=== PATIENT | male | born 1965 | race Caucasian/White ===

== ENCOUNTER 2017-12-14 18:24 | Inpatient (IN) | payer MEDICARE, OTHER ==
[~2017-12-14] VITALS: Ht 165.1 cm; Wt 54.9 kg
[2017-12-14] MEDS ORDERED: VALP250S3 PO ×2 (18:44)
[2017-12-14] MEDS ORDERED: BRIM10DR6 EACHEYE (18:44)
[2017-12-14] MEDS ORDERED: QUET25TA PO (18:44)
[2017-12-14] MEDS ORDERED: TIMO5SOL11 OP (18:44)
[2017-12-14] MEDS ORDERED: MAGN400O6 PO (18:44)
[2017-12-14] MEDS ORDERED: HALO5AMP2 IJ (18:44)
[2017-12-14] MEDS ORDERED: DOCU-141 PO (18:44)
[2017-12-14] MEDS ORDERED: ACET-2154 PO (18:44)
[2017-12-14] MEDS ORDERED: BENZ1TAB7 PO (18:44)
[2017-12-14] MEDS ORDERED: THIA100T13 PO (18:44)
[2017-12-14] MEDS ORDERED: ASCO500C18 PO (18:44)
[2017-12-14] MEDS ORDERED: MULT9LIQ6 PO (18:44)
[2017-12-14 19:03] LABS: BASOPHILS # (AUTO) 0.1 K/uL (0.0-8.0); BASOPHILS % (AUTO) 0.7 % (0.0-2.0); EOSINOPHILS # (AUTO) 0.1 K/uL (0.0-0.7); EOSINOPHILS % (AUTO) 1.3 % (0.0-7.0); HEMATOCRIT 35.4 % (36.7-47.1); HEMOGLOBIN 11.9 g/dL (12.5-16.3); LYMPHOCYTES # (AUTO) 2.3 K/uL (20.0-40.0); LYMPHOCYTES % (AUTO) 31.6 % (20.5-51.5); MEAN CORPUSCULAR HEMOGLOBIN 28.6 uug (23.8-33.4); MEAN CORPUSCULAR HGB CONC 34 g/dL (32.5-36.3); MEAN CORPUSCULAR VOLUME 85.5 fL (73.0-96.2); MONOCYTES # (AUTO) 1.1 K/uL (2.0-10.0); MONOCYTES % (AUTO) 15.3 % (0.0-11.0); NEUTROPHILS # (AUTO) 3.7 K/uL (1.8-8.9); NEUTROPHILS % (AUTO) 51.1 % (38.5-71.5); PLATELET COUNT (AUTO) 392 K/uL (152-348); RED BLOOD CELL COUNT(AUTO) 4.15 MIL/uL (4.06-5.63); WHITE BLOOD COUNT (AUTO) 7.3 K/uL (3.6-10.2)
[2017-12-14 19:12] LABS: CREATININE 0.8 mg/dL (0.6-1.3)
--- NOTE | 2017-12-14 19:16 | NUR ---
PT IS IN ROOM #2A. DR DIAZ EVALUATED THE PT. REPORT GIVEN TO WEED CONTROLLER RN.
[2017-12-14 19:18] LABS: BILIRUBIN,TOTAL 0.2 mg/dL (0.2-1.0); TOTAL PROTEIN, SERUM 6.2 g/dL (6.4-8.2)
[2017-12-14 19:22] LABS: BAND % (MANUAL) 1 % (0-10); EOSINOPHILS % (MANUAL) 1 % (0-8); LYMPHOCYTES % (MANUAL) 29 % (20-40); MONOCYTES % (MANUAL) 16 % (2-10); NEUTROPHILS % (MANUAL) 53 % (42-75)
[2017-12-14 20:04] LABS: *BILIRUBIN,URIN NEGATIVE (NEGATIVE); *BLOOD, URINE 2+ (NEGATIVE); *COLOR,URINE YELLOW (YELLOW); *KETONES,URINE NEGATIVE (NEGATIVE); *PROTEIN,URINE NEGATIVE (NEGATIVE); *UROBILINOGEN,URINE 0.2 E.U./dl (NORMAL); LEUKOCYTE ESTERASE ,URINE 1+ (NEGATIVE); NITRITE, URINE NEGATIVE (NEGATIVE); UGLUCOSE NEGATIVE (NEGATIVE)
[2017-12-14 20:11] LABS: *CLARITY,URINE HAZY (CLEAR)
[2017-12-14 20:13] LABS: RBC,URINE 50-80 /HPF (0-3); SQUAMOUS EPITHELIAL CELL,UR FEW /HPF (NONE SEEN); WBC,URINE 20-50 /HPF (0-3)
--- NOTE | 2017-12-14 20:55 | NUR ---
ECHOCARDIOGRAPH BEING CONDUCTED AT BEDSIDE
[2017-12-14] MEDS ORDERED: HYDROCODONE/APAP 5-325MG TABLET PO ONE (20:58)
[2017-12-14] MEDS ORDERED: HYDROCODONE/APAP 5-325MG TABLET ONE (21:04)
[2017-12-14] MEDS ORDERED: MAGNESIUM HYDROXIDE 30 ML LIQUID UDC PO PRN (21:45)
[2017-12-14] MEDS ORDERED: ACETAMINOPHEN 325 MG TABLET PO SCH (21:45)
[2017-12-14] MEDS ORDERED: ONDANSETRON 4 MG/2 ML VIAL IV PRN (21:45)
[2017-12-14] MEDS ORDERED: Z GUARD REMEDY PASTE 57 GM TUBE TOP PRN (21:45)
[2017-12-14] MEDS ORDERED: LORAZEPAM 2 MG/1 ML VIAL IV ONE (21:47)
[2017-12-14] MEDS ORDERED: LORAZEPAM 2 MG/1 ML VIAL ONE (21:50)
--- NOTE | 2017-12-14 22:15 | NUR ---
REPORT GIVEN TO KATHERINE ELENA.
[2017-12-14] MEDS ORDERED: CEFTRIAXONE 1 G VIAL ONE (23:02)
--- NOTE | 2017-12-14 23:15 | NUR ---
Pt. admitted to TELEMETRY, under care of Dr. CERDA/AMI Belongs List completed
--- NOTE | 2017-12-14 23:20 | NUR ---
Admitted a 52 y.o male patient from ER via [facility] with DX: UTI, urinary retention and abnormal EKG. Patient AA, disoriented to place and time. Reoriented. Able to follow commands appropriately but unable to engaged in conversation. Randomly screams and grabs Singh catheter. Patient advised of catheter's importance. Assessment completed. Addendum: 12/15/17 at 0225 by ULICES MCGINNIS RN Amended: Links added.
--- NOTE | 2017-12-14 23:25 | NUR ---
IV REBECCA tender and red; johann
--- NOTE | 2017-12-14 23:30 | NUR ---
New IV started to RFA. Photos of skin issues taken and documented. Admission data obtained from ERMD's record; patient is very poor historian due to cognitive impairment.
[2017-12-15] VITALS: BP 136/71
[2017-12-15] MEDS: IV NS 1000 ML 1,000 ML IV PRN ×2 (00:01→13:28)
[2017-12-15] MEDS: CEFTRIAXONE 1 G in IV DEXTROSE 5% 50 ML IV SCH (00:03)
[2017-12-15] MEDS: HYDROCODONE/APAP 5-325MG TABLET PO PRN (00:20)
--- NOTE | 2017-12-15 00:20 | NUR ---
Patient continues to randomly screams and grabs salinas catheter. Discussed importance of Sal[place] due to his urinary retention. Medicated with [place]. Taking po fluids well.
--- NOTE | 2017-12-15 00:40 | NUR ---
Trying to get out of bed; very agitated. Screams and yells. Medicated with Ativan IV. Monitored closely. On fall and safety precautions.
[2017-12-15] MEDS: LORAZEPAM 2 MG/1 ML VIAL IV PRN ×2 (00:41→14:59)
--- NOTE | 2017-12-15 02:00 | NUR ---
Ativan effective. environmental monitoring specialist: SR rate 80's.
--- NOTE | 2017-12-15 02:05 | NUR ---
Call placed to [facility] re: vaccines. Information obtained from Khloe MURPHY.
[2017-12-15 04:00] VITALS: BP 100/64
--- NOTE | 2017-12-15 06:00 | NUR ---
Sleeping; easily arouses to name. Will continue to monitor closely.
--- NOTE | 2017-12-15 07:15 | NUR ---
Received patient in bed, awake, alert and verbally responsive. Oriented x3 to person, place and time. FC patent and draining yellow urine. IV site on right wrist, no s/s of infiltration noted. IV fluids NS running at 75cc/hr. Able to tolerate well. No c/o pain at this time.
[2017-12-15] MEDS ORDERED: PANTOPRAZOLE SODIUM 40 MG TABLET.DR PO SCH (07:30)
[2017-12-15] MEDS: VALPROIC ACID 250 MG/5 ML LIQUID UDC PO SCH (08:09)
[2017-12-15] MEDS: BENZTROPINE MESYLATE 1 MG TABLET PO SCH ×2 (08:09→17:12)
[2017-12-15] MEDS: MULTIVIT, IRON, MIN NO. 8, FA TABLET PO SCH (08:09)
[2017-12-15] MEDS: DOCUSATE SODIUM 100 MG CAPSULE PO SCH (08:09)
[2017-12-15] MEDS: THIAMINE HCL 100 MG TABLET PO SCH (08:09)
[2017-12-15] MEDS: QUETIAPINE FUMARATE 25 MG TABLET PO SCH (08:10)
[2017-12-15] MEDS: ASCORBIC ACID 500 MG TABLET PO SCH ×2 (08:10→20:00)
[2017-12-15] MEDS: PANTOPRAZOLE SODIUM 40 MG TABLET.DR PO SCH (08:12)
[2017-12-15] MEDS ORDERED: TIMOLOL MALEATE XE 0.5% OPHT 5 ML BOTTLE OP SCH (09:00)
[2017-12-15] MEDS ORDERED: BRIMONIDINE 0.2% OPHT DROP 10 ML BOTTLE EACHEYE SCH (09:00)
[2017-12-15] MEDS: BRIMONIDINE 0.2% OPHT DROP 10 ML BOTTLE EACHEYE SCH (10:56)
[2017-12-15] MEDS: TIMOLOL MALEATE XE 0.5% OPHT 5 ML BOTTLE EACHEYE SCH (10:57)
[2017-12-15 11:32] VITALS: BP 103/64
[2017-12-15 13:58] LABS: BASOPHILS % (AUTO) 0.3 % (0.0-2.0); EOSINOPHILS % (AUTO) 0.6 % (0.0-7.0); HEMATOCRIT 35.1 % (36.7-47.1); HEMOGLOBIN 11.8 g/dL (12.5-16.3); LYMPHOCYTES # (AUTO) 1.5 K/uL (20.0-40.0); LYMPHOCYTES % (AUTO) 22.3 % (20.5-51.5); MEAN CORPUSCULAR HEMOGLOBIN 28.8 uug (23.8-33.4); MEAN CORPUSCULAR HGB CONC 34 g/dL (32.5-36.3); MEAN CORPUSCULAR VOLUME 85.5 fL (73.0-96.2); MONOCYTES # (AUTO) 0.6 K/uL (2.0-10.0); MONOCYTES % (AUTO) 9.3 % (0.0-11.0); NEUTROPHILS # (AUTO) 4.6 K/uL (1.8-8.9); NEUTROPHILS % (AUTO) 67.5 % (38.5-71.5); PLATELET COUNT (AUTO) 370 K/uL (152-348); WHITE BLOOD COUNT (AUTO) 6.8 K/uL (3.6-10.2)
[2017-12-15 14:03] LABS: CREATININE 0.7 mg/dL (0.6-1.3); PHOSPHOROUS 3.9 mg/dL (2.5-4.9); POTASSIUM 4.3 mmol/L (3.5-5.1)
--- NOTE | 2017-12-15 14:30 | NUR ---
Patient is resting comfortable in bed, sleeping, in no acute distress. IV fluids NS at 75cc/hr running.
[2017-12-15] MEDS: COLCHICINE 0.6 MG TABLET PO SCH (14:59)
[2017-12-15 15:32] VITALS: BP 93/54
--- NOTE | 2017-12-15 16:40 | NUR ---
Patient was trying to get out of bed, c/o that he needs to go to the bathroom to pee. C/O pain at the catheter insertion site. Assisted patient to the bathroom, Salinas catheter was removed at this time. Patient stated relief of symptoms upon removal of salinas. Assisted patient back to bed, calm and resting at the moment. Will continue to observe and monitor.
--- NOTE | 2017-12-15 17:49 | NUR ---
Patient laying in bed at the moment, having dinner, assisted with meals. Able to tolerated meal intake well
[2017-12-15] MEDS: VALPROIC ACID 250 MG CAPSULE PO SCH (20:00)
[2017-12-15 20:16] VITALS: BP 97/53
[2017-12-16 00:10] VITALS: BP 104/67
[2017-12-16] MEDS: CEFTRIAXONE 1 G in IV DEXTROSE 5% 50 ML IV SCH (00:37)
--- NOTE | 2017-12-16 05:34 | NUR ---
Pt yelling most of the night. At times it appears he is yelling in his sleep, and when I go to his room he is asleep. Other times he yells when he needs to use the bathroom. At 8pm patient got out of bed on his own and attempted to go to the bathroom, also pulled out the IV line. I reinserted a new one on the right hand. I put a bedside commode and assisted patient as needed throughout the night. Patient refuses to use diaper or urinal. At 11pm patient yelled "I need my shot!" IM ativan was administered. Patient asked for a pudding, ate it, and slept. Continues to yell in his bed for no reason. Reoriented as needed and offered toileting and fluids. Continues to move around in bed a lot and pulls of socks and sheets. However IV line is intact and has not attempted to get out of bed unassisted.
[2017-12-16 06:05] LABS: BASOPHILS % (AUTO) 0.4 % (0.0-2.0); EOSINOPHILS # (AUTO) 0.1 K/uL (0.0-0.7); EOSINOPHILS % (AUTO) 1.7 % (0.0-7.0); HEMATOCRIT 36.4 % (36.7-47.1); HEMOGLOBIN 12.3 g/dL (12.5-16.3); LYMPHOCYTES # (AUTO) 2.1 K/uL (20.0-40.0); LYMPHOCYTES % (AUTO) 30.2 % (20.5-51.5); MEAN CORPUSCULAR HEMOGLOBIN 28.8 uug (23.8-33.4); MEAN CORPUSCULAR HGB CONC 34 g/dL (32.5-36.3); MEAN CORPUSCULAR VOLUME 85.1 fL (73.0-96.2); MONOCYTES # (AUTO) 0.8 K/uL (2.0-10.0); MONOCYTES % (AUTO) 12.1 % (0.0-11.0); NEUTROPHILS # (AUTO) 3.8 K/uL (1.8-8.9); NEUTROPHILS % (AUTO) 55.6 % (38.5-71.5); PLATELET COUNT (AUTO) 359 K/uL (152-348); RED BLOOD CELL COUNT(AUTO) 4.27 MIL/uL (4.06-5.63); WHITE BLOOD COUNT (AUTO) 6.9 K/uL (3.6-10.2)
[2017-12-16 06:14] VITALS: BP 96/55
[2017-12-16 06:17] LABS: CREATININE 0.7 mg/dL (0.6-1.3); POTASSIUM 3.6 mmol/L (3.5-5.1)
[2017-12-16] MEDS: PANTOPRAZOLE SODIUM 40 MG TABLET.DR PO SCH (07:19)
--- NOTE | 2017-12-16 08:00 | NUR ---
RESTING IN BED NO SS OF PAIN OR DISTRESS. KEEP COMFORTABLE
[2017-12-16] MEDS: MULTIVIT, IRON, MIN NO. 8, FA TABLET PO SCH (08:18)
[2017-12-16] MEDS: BENZTROPINE MESYLATE 1 MG TABLET PO SCH ×2 (08:18→16:13)
[2017-12-16] MEDS: COLCHICINE 0.6 MG TABLET PO SCH ×2 (08:18→16:13)
[2017-12-16] MEDS: QUETIAPINE FUMARATE 25 MG TABLET PO SCH (08:18)
[2017-12-16] MEDS: THIAMINE HCL 100 MG TABLET PO SCH (08:18)
[2017-12-16] MEDS: ASCORBIC ACID 500 MG TABLET PO SCH ×2 (08:18→20:03)
[2017-12-16] MEDS: VALPROIC ACID 250 MG/5 ML LIQUID UDC PO SCH (08:18)
[2017-12-16] MEDS: DOCUSATE SODIUM 100 MG CAPSULE PO SCH (08:18)
[2017-12-16] MEDS: BRIMONIDINE 0.2% OPHT DROP 10 ML BOTTLE EACHEYE SCH (08:19)
[2017-12-16] MEDS: TIMOLOL MALEATE XE 0.5% OPHT 5 ML BOTTLE EACHEYE SCH (08:19)
[2017-12-16] MEDS: IV NS 1000 ML 1,000 ML IV PRN (08:20)
--- NOTE | 2017-12-16 11:30 | NUR ---
SEEN BY HOSPITALIST WITH ORDERS, SEE NOTES
[2017-12-16 11:32] VITALS: BP 105/65
--- NOTE | 2017-12-16 13:14 | NUR ---
NO ACUTE CHANGE. CONTINUE MONITORING FOR UTI. AFEBRILE
[2017-12-16 15:22] VITALS: BP 109/65
[2017-12-16] MEDS: LORAZEPAM 2 MG/1 ML VIAL IV PRN ×3 (15:24→23:30)
--- NOTE | 2017-12-16 15:24 | NUR ---
ATIVAN 1MG GIVEN DUE TO AGITATION, PULLING HEART MONITOR AND IV HL, & GETTING OUT OF BED. CLOSELY MONITORED . REMAINS SR ON MONITOR
--- NOTE | 2017-12-16 18:36 | NUR ---
CLOSELY OBSERVED FOR URINARY RETENTION, VOIDING FREELY TO THE BATHROOM. NO FEVER, N/V.
--- NOTE | 2017-12-16 19:30 | NUR ---
Received patient laying comfortably in bed. No acute distress noted. A/O x 3 but forgetful. Patient has a hx of cognitive disorder so response is slightly slow. TELE Sinus Rhythm. However patient is able to follow orders and make needs known. Patient is pleasant and cooperative. Patient is able to walk to the restroom with minimal assist. Urinating well. Skin check done. No open wounds or other skin issues aside from redness on the coccyx area. Safety initiated. Bed alarm on. Room is kept clutter free. Bed is in low and locked position. Will closely monitor.
[2017-12-16 20:00] VITALS: BP 115/56
[2017-12-16] MEDS: VALPROIC ACID 250 MG CAPSULE PO SCH (20:03)
[2017-12-17] VITALS: BP 108/66
[2017-12-17] MEDS: ACETAMINOPHEN 325 MG TABLET PO PRN ×2 (00:54→14:44)
[2017-12-17] MEDS: HYDROCODONE/APAP 5-325MG TABLET PO PRN (02:50)
--- NOTE | 2017-12-17 02:52 | NUR ---
Patient started to scream stating "my circulation"! I asked if he was in pain and he said "yes". I asked where and he said "in his chest" and if he wanted medication he said "yes". TELE Sinus rhythm. Vital signs checked and all stable. Medication given, will closely monitor.
[2017-12-17 04:00] VITALS: BP 129/70
--- NOTE | 2017-12-17 05:00 | NUR ---
Emesis x 1. Appears to be pudding. Whole linen and gown changed. Will continue to monitor.
--- NOTE | 2017-12-17 05:33 | NUR ---
Patient slept poorly t/o shift. He was anxious and worried t/o shift. Patient states "I am worried about the [place]"; had to re-direct him multiple times. Ativan given to little effect. TELE sinus rhythm. Vital signs stable. Urinating very well. Ambulated once to the restroom with assistance. Safety and comfort measures maintained t/o shift. Room was kept clutter free. All meds given as ordered. All needs met.
[2017-12-17] MEDS: PANTOPRAZOLE SODIUM 40 MG TABLET.DR PO SCH (06:00)
[2017-12-17] MEDS: BRIMONIDINE 0.2% OPHT DROP 10 ML BOTTLE EACHEYE SCH (08:09)
[2017-12-17] MEDS: THIAMINE HCL 100 MG TABLET PO SCH (08:10)
[2017-12-17] MEDS: COLCHICINE 0.6 MG TABLET PO SCH ×2 (08:10→16:53)
[2017-12-17] MEDS: BENZTROPINE MESYLATE 1 MG TABLET PO SCH ×2 (08:10→16:53)
[2017-12-17] MEDS: QUETIAPINE FUMARATE 25 MG TABLET PO SCH (08:10)
[2017-12-17] MEDS: ASCORBIC ACID 500 MG TABLET PO SCH ×2 (08:10→20:33)
[2017-12-17] MEDS: DOCUSATE SODIUM 100 MG CAPSULE PO SCH (08:10)
[2017-12-17] MEDS: MULTIVIT, IRON, MIN NO. 8, FA TABLET PO SCH (08:10)
[2017-12-17] MEDS: TIMOLOL MALEATE XE 0.5% OPHT 5 ML BOTTLE EACHEYE SCH (08:10)
[2017-12-17] MEDS: VALPROIC ACID 250 MG/5 ML LIQUID UDC PO SCH (08:11)
[2017-12-17 11:32] VITALS: BP 107/62
[2017-12-17] MEDS: LORAZEPAM 2 MG/1 ML VIAL IV PRN (14:44)
[2017-12-17 15:43] VITALS: BP 130/65
--- NOTE | 2017-12-17 19:56 | NUR ---
Received patient sitting comfortably in the chair. No acute distress noted. A/O x 3 but forgetful. Patient has a hx of cognitive disorder so response is slightly slow. However patient is able to follow orders and make needs known. Patient is pleasant and cooperative. Patient is able to walk to the restroom with minimal assist. Urinating well. Skin check done. No open wounds or other skin issues aside from redness on the coccyx area. Safety initiated. Bed alarm on. Room is kept clutter free. Bed is in low and locked position. Will closely monitor.
[2017-12-17 20:00] VITALS: BP 109/74
[2017-12-17] MEDS: VALPROIC ACID 250 MG CAPSULE PO SCH (20:33)
[2017-12-17 22:05] VITALS: BP 109/74
--- NOTE | 2017-12-17 22:05 | NUR ---
Transport team here to pick up man patient. Patient in stable condition. Vital signs stale. ID band removed. IV removed.
== END 2017-12-17 22:05 | DRG 695 ==
LOC: ER 18:24 → TELE 23:00 → MED 12-17 15:44
PROVIDERS: ADMIT Nurse Practitioner Acute Care; ATTEND Nurse Practitioner Acute Care
DX: R33.0 Drug induced retention of urine (principal); G93.40 Encephalopathy, unspecified; D68.59 Other primary thrombophilia; G20 Parkinson's disease; E44.0 Moderate protein-calorie malnutrition; I31.9 Disease of pericardium, unspecified; F20.9 Schizophrenia, unspecified; N39.0 Urinary tract infection, site not specified; T44.3X5A Adverse effect of other parasympatholytics [anticholinergics and antimuscarinics] and spasmolytics, initial encounter; Y92.129 Unspecified place in nursing home as the place of occurrence of the external cause; M21.372 Foot drop, left foot; D64.9 Anemia, unspecified; M21.371 Foot drop, right foot; Z88.0 Allergy status to penicillin; Z68.20 Body mass index [BMI] 20.0-20.9, adult; Z74.01 Bed confinement status; G40.909 Epilepsy, unspecified, not intractable, without status epilepticus; I34.0 Nonrheumatic mitral (valve) insufficiency; E86.0 Dehydration; B96.89 Other specified bacterial agents as the cause of diseases classified elsewhere; R62.59 Other lack of expected normal physiological development in childhood; R94.31 Abnormal electrocardiogram [ECG] [EKG]
CPT/HCPCS: 36415; 51702; 70030-TC; 71045; 83690; 83735; 84100; 85025; 85651; 86140; 87086; 93005; 93307; A4663; J0696; J2060; J2405; J3590; J7030; J7060